=== PATIENT | male | born 1990 | race American Indian/Alaskan Native ===

== ENCOUNTER 2019-03-12 07:24 | Emergency (ER) | payer SELFPAY ==
[2019-03-12 08:17] LABS: Basophils # (Auto) 0.1 K/mm3 (0.0-0.1); Eosinophils # (Auto) 0.4 K/mm3 (0.0-0.4); Eosinophils % (Auto) 5.4 % (0.0-4.3); Hematocrit 42.2 % (35.5-45.6); Hemoglobin 13.9 gm/dl (11.8-15.2); Lymphocytes # (Auto) 3.3 K/mm3 (1.2-5.4); Lymphocytes % (Auto) 43.3 % (13.4-35.0); Mean Corpuscular HGB Conc 33 % (32-34); Mean Corpuscular Volume 84 fl (84-94); Monocytes # (Auto) 0.4 K/mm3 (0.0-0.8); Monocytes % (Auto) 5.8 % (0.0-7.3); Platelet Count 252 K/mm3 (140-440); Red Cell Distribution Width 15.3 % (13.2-15.2)
[2019-03-12 08:28] LABS: INR 0.87 (0.87-1.13)
[2019-03-12 08:29] LABS: Partial Thromboplastin Time 26.5 Sec. (24.2-36.6)
[2019-03-12 08:36] LABS: Creatine Kinase MB 2.1 ng/mL (0.0-4.0)
[2019-03-12 08:39] LABS: Alanine Aminotransferase 64 units/L (7-56); BUN/Creatinine Ratio 9; Blood Urea Nitrogen 12 mg/dL (9-20); Calcium 8.8 mg/dL (8.4-10.2); Hemolysis Index 9
[2019-03-12 08:40] LABS: Bilirubin,Direct < 0.2 mg/dL (0-0.2)
[2019-03-12 08:51] LABS: Amphetamine Screen,Urine PRESUMPTIVE NEGATIVE; Benzodiazepines Screen,Urine PRESUMPTIVE NEGATIVE; Cannabinoid Screen,Urine PRESUMPTIVE NEGATIVE; Cocaine Screen,Urine PRESUMPTIVE NEGATIVE; Methadone Screen,Urine PRESUMPTIVE NEGATIVE; Opiate Screen,Urine PRESUMPTIVE NEGATIVE
--- NOTE | 2019-03-12 08:51 | XRay Report ---
PORTABLE CHEST INDICATION: Dysrhythmia. COMPARISON: None similar at this institution. FINDINGS: Portable, frontal chest radiograph suggests normal cardiomediastinal silhouette. Clear lungs. Intact bones. EKG leads. CONCLUSION: No acute chest process, as described. Thank you for the opportunity to participate in this patient's care.
[2019-03-12 09:48] LABS: Bilirubin,Urine Negative (Negative); Blood,Urine Negative (Negative); Color,Urine Yellow (Yellow)
[2019-03-12 09:49] LABS: Urobilinogen,Urine < 2.0 mg/dL (<2.0)
[2019-03-12 09:55] LABS: Mucus,Urine FEW /HPF
[2019-03-12 11:30] VITALS: BP 132/83
--- NOTE | 2019-03-12 11:31 | Emergency Department Report ---
ED Palpitations HPI - General Chief Complaint: Arrhythmia/Palpitations Stated Complaint: HYPERTENSION Time Seen by Provider: 03/12/19 08:00 Source: patient, EMS Mode of arrival: Stretcher Limitations: No Limitations - History of Present Illness Initial Comments: This is a 28-year-old male who experienced palpitations this morning. He was not syncopal or presyncopal. He was not weak or dizzy. He states he hasn't experienced this before. He does not report any obvious precipitants. He does drink caffeinated beverages but not anything unusual today. He has no cardiac or medical history that he is aware of. Does not have a primary care physician. He is asymptomatic at the time of my encounter. MD Complaint: "skipped beats" -: Gradual Context: occured during rest Associated Symptoms: denies other symptoms - Related Data Allergies Allergy/AdvReac Type Severity Reaction Status Date / Time No Known Allergies Allergy Unverified 03/12/19 07:42 ED Review of Systems ROS: Stated complaint: HYPERTENSION Other details as noted in HPI Constitutional: denies: chills, fever Eyes: denies: eye pain, eye discharge, vision change ENT: denies: ear pain, throat pain Respiratory: denies: cough, shortness of breath, wheezing Cardiovascular: palpitations. denies: chest pain Endocrine: no symptoms reported Gastrointestinal: denies: abdominal pain, nausea, diarrhea Genitourinary: denies: urgency, dysuria Musculoskeletal: denies: back pain, joint swelling, arthralgia Skin: denies: rash, lesions Neurological: denies: headache, weakness, paresthesias Psychiatric: denies: anxiety, depression Hematological/Lymphatic: denies: easy bleeding, easy bruising ED Past Medical Hx - Past Medical History Previous Medical History?: No - Surgical History Past Surgical History?: Yes Additional Surgical History: right hand sx - Social History Smoking Status: Never Smoker Substance Use Type: Alcohol ED Physical Exam - General Limitations: No Limitations General appearance: alert, in no apparent distress - Head Head exam: Present: atraumatic, normocephalic - Eye Eye exam: Present: normal appearance - ENT ENT exam: Present: mucous membranes moist - Neck Neck exam: Present: normal inspection - Respiratory Respiratory exam: Present: normal lung sounds bilaterally. Absent: respiratory distress - Cardiovascular Cardiovascular Exam: Present: regular rate, normal rhythm. Absent: systolic murmur, diastolic murmur, rubs, gallop - GI/Abdominal GI/Abdominal exam: Present: soft, normal bowel sounds. Absent: distended, tenderness, guarding, rebound, rigid - Rectal Rectal exam: Present: deferred - Extremities Exam Extremities exam: Present: normal inspection - Back Exam Back exam: Present: normal inspection - Neurological Exam Neurological exam: Present: alert, oriented X3, CN II-XII intact. Absent: motor sensory deficit - Psychiatric Psychiatric exam: Present: normal affect, normal mood - Skin Skin exam: Present: warm, dry, intact, normal color. Absent: rash ED Course Vital Signs 03/12/19 03/12/19 03/12/19 07:35 07:45 07:49 Temperature 98.5 F Pulse Rate 75 Respiratory 19 Rate Blood Pressure 145/103 146/102 145/102 O2 Sat by Pulse 99 99 99 Oximetry 03/12/19 03/12/19 03/12/19 08:00 08:15 08:17 Temperature Pulse Rate 71 66 Respiratory 11 L 16 19 Rate Blood Pressure 145/103 138/87 O2 Sat by Pulse 98 96 99 Oximetry 03/12/19 03/12/19 03/12/19 08:53 09:00 09:15 Temperature Pulse Rate 77 79 82 Respiratory 18 19 22 Rate Blood Pressure 138/87 150/90 138/87 O2 Sat by Pulse 100 98 98 Oximetry 03/12/19 03/12/19 03/12/19 09:31 09:45 10:00 Temperature Pulse Rate 75 77 73 Respiratory 20 20 15 Rate Blood Pressure 138/87 150/90 130/95 O2 Sat by Pulse 99 96 99 Oximetry 03/12/19 10:15 Temperature Pulse Rate 68 Respiratory 19 Rate Blood Pressure 130/95 O2 Sat by Pulse 99 Oximetry - Reevaluation(s) Reevaluation #1: Condition asymptomatic. night monitor during no ectopy noted. Patient ready for discharge. 03/12/19 11:31 ED Medical Decision Making - Lab Data Result diagrams: 03/12/19 08:07 03/12/19 08:07 Laboratory Results - last 24 hr 03/12/19 03/12/19 03/12/19 08:07 08:07 08:07 WBC 7.6 RBC 5.00 Hgb 13.9 Hct 42.2 MCV 84 MCH 28 MCHC 33 RDW 15.3 H Plt Count 252 Lymph % (Auto) 43.3 H [place] % (Auto) 5.8 Eos % (Auto) 5.4 H Baso % (Auto) 1.0 Lymph # 3.3 [place] # 0.4 Eos # 0.4 Baso # 0.1 Seg Neutrophils % 44.5 Seg Neutrophils # 3.4 PT 12.3 INR 0.87 APTT 26.5 Sodium 141 Potassium 3.9 Chloride 105.5 Carbon Dioxide 24 Anion Gap 15 BUN 12 Creatinine 1.3 Estimated GFR > 60 BUN/Creatinine Ratio 9 Glucose 111 H Calcium 8.8 Magnesium 1.80 Total Bilirubin 0.20 Direct Bilirubin < 0.2 Indirect Bilirubin 0.0 AST 26 ALT 64 H Alkaline Phosphatase 121 Total Creatine Kinase 308 H CK-MB (CK-2) 2.1 CK-MB (CK-2) Rel Index 0.6 Troponin T < 0.010 NT-Pro-B Natriuret Pep 39.63 Total Protein 6.9 Albumin 4.0 Albumin/Globulin Ratio 1.4 TSH Urine Color Urine Turbidity Urine pH Ur Specific [place] Urine Protein Urine Glucose (UA) Urine Ketones Urine Blood Urine Nitrite Urine Bilirubin Urine Urobilinogen Ur Leukocyte Esterase Urine WBC (Auto) Urine RBC (Auto) U Epithel Cells (Auto) Urine Mucus Urine Opiates Screen Urine Methadone Screen Ur Barbiturates Screen Ur Phencyclidine Scrn Ur Amphetamines Screen U Benzodiazepines Scrn Urine Cocaine Screen U Marijuana (THC) Screen Drugs of Abuse Note Plasma/Serum Alcohol 03/12/19 03/12/19 03/12/19 08:07 08:22 08:23 WBC RBC Hgb Hct MCV MCH MCHC RDW Plt Count Lymph % (Auto) [place] % (Auto) Eos % (Auto) Baso % (Auto) Lymph # [place] # Eos # Baso # Seg Neutrophils % Seg Neutrophils # PT INR APTT Sodium Potassium Chloride Carbon Dioxide Anion Gap BUN Creatinine Estimated GFR BUN/Creatinine Ratio Glucose Calcium Magnesium Total Bilirubin Direct Bilirubin Indirect Bilirubin AST ALT Alkaline Phosphatase Total Creatine Kinase CK-MB (CK-2) CK-MB (CK-2) Rel Index Troponin T NT-Pro-B Natriuret Pep Total Protein Albumin Albumin/Globulin Ratio TSH 5.290 H Urine Color Yellow Urine Turbidity Clear Urine pH 5.0 Ur Specific [place] 1.020 Urine Protein 30 mg/dl Urine Glucose (UA) Negative Urine Ketones Negative Urine Blood Negative Urine Nitrite Negative Urine Bilirubin Negative Urine Urobilinogen < 2.0 Ur Leukocyte Esterase Negative Urine WBC (Auto) 1.0 Urine RBC (Auto) 2.0 U Epithel Cells (Auto) < 1.0 Urine Mucus Few Urine Opiates Screen Urine Methadone Screen Ur Barbiturates Screen Ur Phencyclidine Scrn Ur Amphetamines Screen U Benzodiazepines Scrn Urine Cocaine Screen U Marijuana (THC) Screen Drugs of Abuse Note Plasma/Serum Alcohol < 0.01 03/12/19 08:23 WBC RBC Hgb Hct MCV MCH MCHC RDW Plt Count Lymph % (Auto) [place] % (Auto) Eos % (Auto) Baso % (Auto) Lymph # [place] # Eos # Baso # Seg Neutrophils % Seg Neutrophils # PT INR APTT Sodium Potassium Chloride Carbon Dioxide Anion Gap BUN Creatinine Estimated GFR BUN/Creatinine Ratio Glucose Calcium Magnesium Total Bilirubin Direct Bilirubin Indirect Bilirubin AST ALT Alkaline Phosphatase Total Creatine Kinase CK-MB (CK-2) CK-MB (CK-2) Rel Index Troponin T NT-Pro-B Natriuret Pep Total Protein Albumin Albumin/Globulin Ratio TSH Urine Color Urine Turbidity Urine pH Ur Specific [place] Urine Protein Urine Glucose (UA) Urine Ketones Urine Blood Urine Nitrite Urine Bilirubin Urine Urobilinogen Ur Leukocyte Esterase Urine WBC (Auto) Urine RBC (Auto) U Epithel Cells (Auto) Urine Mucus Urine Opiates Screen Presumptive negative Urine Methadone Screen Presumptive negative Ur Barbiturates Screen Presumptive negative Ur Phencyclidine Scrn Presumptive negative Ur Amphetamines Screen Presumptive negative U Benzodiazepines Scrn Presumptive negative Urine Cocaine Screen Presumptive negative U Marijuana (THC) Screen Presumptive negative Drugs of Abuse Note Disclamer Plasma/Serum Alcohol Critical care attestation.: If time is entered above; I have spent that time in minutes in the direct care of this critically ill patient, excluding procedure time. ED Disposition Clinical Impression: Palpitations, Elevated TSH Disposition: DC-01 TO HOME OR SELFCARE Is pt being admited?: No Does the pt Need Aspirin: No Condition: Stable Instructions: Palpitations (ED) Additional Instructions: Your workup thus far just showed a slightly elevated thyroid test (TSH). It is uncertain what caused her skipped beats this a.m. See information regarding the local clinic and nearby cardiology group. Return if any acute change or significant recurrent symptoms. Referrals: DOMINICK STATON MD [Primary Care Provider] - 3-5 Days LEAH CURIEL MD [Referring] - 3-5 Days NITISH BARBER MD [Staff Physician] - 3-5 Days Time of Disposition: 11:32
== END 2019-03-12 11:57 | disposition home or self-care (01) ==
LOC: ED 07:24
DX: R00.2 Palpitations (principal); R79.89 Other specified abnormal findings of blood chemistry; Z98.890 Other specified postprocedural states
CPT/HCPCS: 36415; 71045; 80048; 80076; 80307; 81001; 82550; 82553; 83735; 83880; 84443; 84484; 85025; 85610; 85730; 93005; 93010; 99284; G0480; 80320